=== PATIENT | female | born 1955 | race Caucasian/White ===

== ENCOUNTER → 2016-07-31 | Outpatient (CLI) | payer MEDICARE, MEDICAID ==
[~2016-07-31] MED LIST: VIBRAMYCIN100 MG PO
[2016-07-31 16:16] LABS: BASO # 0.1 10*3/uL (0.0-0.1); BASO % 1.5 % (0.0-1.0); EOS # 0.1 10*3/uL (0.0-0.4); EOS % 2.4 % (1.0-4.0); HEMOGLOBIN 12.6 g/dl (12.0-16.0); LYMPH # 1.8 10*3/uL (1.3-4.4); LYMPH % 33.3 % (27.0-41.0); MEAN CELL VOLUME 89.4 fl (81.0-99.0); MEAN CORPUSCULAR HGB 29.6 pg (27.0-31.0); MEAN CORPUSCULAR HGB CONC 33.2 g/dl (33.0-37.0); MEAN PLATELET VOLUME 10.6 fl (9.6-12.3); MONO # 0.6 10*3/uL (0.1-1.0); MONO % 11.2 % (3.0-9.0); NEUT # 2.8 10*3/uL (2.3-7.9); NEUT % 50.9 % (47.0-73.0); PLATELET COUNT AUTOMATED 236 10*3/uL (130-400); RED BLOOD COUNT 4.25 10*6/uL (4.10-5.10); RED CELL DISTRI WIDTH 12.9 % (0-14.5); WHITE BLOOD COUNT 5.5 10*3/uL (4.8-10.8)
[2016-07-31 16:42] LABS: ALBUMIN 3.8 gm/dl (3.1-4.5); ALKALINE PHOSPHATASE 70 U/L (45-117); BILIRUBIN, TOTAL 0.3 mg/dl (0.2-1.0); BUN 15 mg/dl (7-24); CARBON DIOXIDE 32 mmol/L (21-32); CHLORIDE 102 mmol/L (98-107); EST GLOM FILT AFRICAN AMERICAN > 60 ml/min; GLUCOSE 84 mg/dL (65-99); POTASSIUM 4.2 mmol/L (3.5-5.1); SGOT/AST 15 IU/L (3-35); SGPT/ALT 15 U/L (12-78); SODIUM 139 mmol/L (136-145); TOTAL PROTEIN 7.2 gm/dL (6.4-8.2)
== END | disposition home or self-care (01) ==
LOC: LAB 14:48
PROVIDERS: Physician Assistant Medical
DX: G35 Multiple sclerosis (principal); E56.9 Vitamin deficiency, unspecified

== ENCOUNTER → 2016-08-06 | Outpatient (CLI) | payer MEDICARE, MEDICAID | END | disposition home or self-care (01) | LOC: MRI 01:57 | DX: G35 Multiple sclerosis (principal); M12.88 Other specific arthropathies, not elsewhere classified, other specified site; M47.892 Other spondylosis, cervical region; M48.02 Spinal stenosis, cervical region ==

== ENCOUNTER → 2016-10-19 | Outpatient (CLI) | payer MEDICARE, MEDICAID ==
[2016-10-19 10:41] LABS: HEMOGLOBIN A1c 5.4 % (4.8-5.6)
[2016-10-19 10:54] LABS: CHOLESTEROL 296 mg/dL (<200); GLUCOSE 95 mg/dL (65-99); HDL CHOLESTEROL 67 mg/dl (40-60); LDL CHOLESTEROL 207 mg/dL (9-159); TRIGLYCERIDES 109 mg/dl (<150); VLDL CHOLESTEROL 22 mg/dL (6-40)
== END | disposition home or self-care (01) ==
LOC: LAB 01:50
PROVIDERS: Internal Medicine
DX: E78.00 Pure hypercholesterolemia, unspecified (principal); E55.9 Vitamin D deficiency, unspecified; E11.9 Type 2 diabetes mellitus without complications; Z79.4 Long term (current) use of insulin

== ENCOUNTER → 2017-05-08 | Outpatient (CLI) | payer MEDICARE, MEDICAID ==
[~2017-05-08] MED LIST changes: +EC NAPROSYN,NA500 MG PO; +EFFEXOR XR150 MG PO; +LIPITOR20 MG PO; +TRAZODONE150 MG PO
== END | disposition home or self-care (01) ==
LOC: MAMMO 01:04
DX: Z12.31 Encounter for screening mammogram for malignant neoplasm of breast (principal)

== ENCOUNTER → 2017-05-17 | Day surgery (SDC) | payer MEDICARE, MEDICAID ==
[~2017-05-17] VITALS: Ht 157.4 cm; Wt 54.4 kg
[~2017-05-17] MED LIST changes: +AVONEX PEN30 MCG/0.2 IJ
--- NOTE | ~2017-05-17 | PROC NOTE ---
[place], [place] PROCEDURE NOTE NAME: EMELY SLADE [facility] #: [id number] UNIT #: [id number] ROOM: DOCTOR: KRISTOPHER PERALTA MD BIRTHDATE: [birth year] DOS: 05/17/2017 PREOPERATIVE DIAGNOSIS: Screening colonoscopy. POSTOPERATIVE DIAGNOSIS: Normal colon. PROCEDURE: Colonoscopy. ENDOSCOPIST: Kristopher Peralta MD INSIDE SALES ENGINEER: JO. ANESTHESIA: MAC. INDICATIONS: This is a 61-year-old lady who is here for a screening examination. The procedure and its complications were explained to the patient in detail preoperatively. Complications that were discussed included but were not limited to, bleeding, colon perforation, and missed lesions. She agreed to proceed. DESCRIPTION OF PROCEDURE: After identifying the patient, the patient was brought to the endoscopy suite and placed in the left lateral position. After IV sedation was administered, a timeout procedure was called and a digital rectal exam was performed, which was within normal limits. An adult colonoscope was now introduced into the anal canal and advanced sequentially into the rectum, sigmoid colon, descending colon, transverse colon, ascending colon up to the cecum. Upon reaching the cecum, the scope was withdrawn. The prep was found to be optimal. Total withdrawal time was approximately 6 minutes and 45 seconds. There were no obvious abnormalities identified in the entirety of the colon. There were mild internal hemorrhoids, which were uncomplicated. The scope was then withdrawn and the patient was taken to the recovery room in a stable fashion. There were no complications. Dr. Kristopher Peralta, the attending endoscopist, was present throughout the operating case. Based on these findings, the patient is recommended to have another colonoscopy in 10 years or sooner if she develops any new symptoms. These findings were discussed with the patient's family in the recovery room. Kristopher Peralta MD CM:PROCNOTE:PROCEDURE NOTE [id number] KRISTOPHER PERALTA MD
[2017-05-17 07:15] VITALS: BP 102/58
[2017-05-17 08:13] VITALS: BP 101/52
[2017-05-17 08:28] VITALS: BP 106/55
[2017-05-17 08:43] VITALS: BP 125/58
== END | disposition home or self-care (01) ==
LOC: SDC 05-14 11:00
DX: Z12.11 Encounter for screening for malignant neoplasm of colon (principal); F32.9 Major depressive disorder, single episode, unspecified; E78.00 Pure hypercholesterolemia, unspecified; J43.9 Emphysema, unspecified; Z90.710 Acquired absence of both cervix and uterus; Z82.49 Family history of ischemic heart disease and other diseases of the circulatory system; Z87.891 Personal history of nicotine dependence; K64.8 Other hemorrhoids; Z88.0 Allergy status to penicillin
CPT/HCPCS: 00811; G0121

== ENCOUNTER 2018-12-25 09:32 | Inpatient (IN) | payer MEDICARE, MEDICAID ==
[~2018-12-25] VITALS: Ht 162.5 cm; Wt 55.1 kg
[2018-12-25 09:32] VITALS: BP 120/49
[2018-12-25 09:58] LABS: BASO # 0.1 10*3/uL (0.0-0.1); BASO % 0.9 % (0.0-1.0); EOS # 0.1 10*3/uL (0.0-0.4); EOS % 1.4 % (1.0-4.0); HEMATOCRIT 42.2 % (37.0-47.0); HEMOGLOBIN 13.6 g/dl (12.0-16.0); LYMPH # 1.5 10*3/uL (1.3-4.4); LYMPH % 26.7 % (27.0-41.0); MEAN CELL VOLUME 92.7 fl (81.0-99.0); MEAN CORPUSCULAR HGB 29.9 pg (27.0-31.0); MEAN CORPUSCULAR HGB CONC 32.2 g/dl (33.0-37.0); MEAN PLATELET VOLUME 10.4 fl (9.6-12.3); MONO # 0.5 10*3/uL (0.1-1.0); MONO % 8.8 % (3.0-9.0); NEUT # 3.4 10*3/uL (2.3-7.9); NEUT % 61.1 % (47.0-73.0); PLATELET COUNT AUTOMATED 235 10*3/uL (130-400); RED BLOOD COUNT 4.55 10*6/uL (4.10-5.10); RED CELL DISTRI WIDTH 13.1 % (0-14.5); WHITE BLOOD COUNT 5.6 10*3/uL (4.8-10.8)
[2018-12-25 10:10] LABS: ACT PARTIAL THROMBO TIME 25.7 SECONDS (20.0-32.1); INTERNATIONAL NORM RATIO 0.9 (2.0-3.5)
[2018-12-25 10:13] LABS: ALKALINE PHOSPHATASE 72 U/L (45-117); BUN 9 mg/dl (7-24); CHLORIDE 106 mmol/L (98-107); CREATININE 0.75 mg/dL (0.55-1.02); POTASSIUM 4.2 mmol/L (3.5-5.1); SGOT/AST 15 IU/L (3-35); SGPT/ALT 20 U/L (12-78); SODIUM 141 mmol/L (136-145); TOTAL PROTEIN 7.4 gm/dL (6.4-8.2)
[2018-12-25 10:20] LABS: TROPONIN I < 0.015 ng/ml (<0.045)
[2018-12-25 10:27] VITALS: BP 109/67
--- NOTE | 2018-12-25 10:39 | NUR ---
BACK FROM CT AT THIS TIME.
[2018-12-25 10:55] VITALS: BP 101/40
--- NOTE | 2018-12-25 10:55 | NUR ---
A 63, admitted to , under the services of JUAN LUIS Smith DO with a diagnosis of SYNCOPE. Chief complaint is SYNCOPE, HEART PALPATIONS. Patient arrived via stretcher from ER. Monitor applied. Initial assessment completed. Vital signs taken and recorded. JUAN LUIS SMITH DO notified of admission to the unit. Orders received. See assessment for past medical history, medications and allergies. Patient and/or family oriented to unit. [address] visitation policy reviewed. Clothing/patient valuable form completed. LAURENT MALDONADO
[2018-12-25] MEDS ORDERED: FOSAMAX70 M1 PO (11:45)
[2018-12-25] MEDS ORDERED: Synthroid,Levo88 MCG PO (11:46)
--- NOTE | 2018-12-25 11:46 | NUR ---
MED REC UPDATED PER PATIENT
[2018-12-25 12:00] VITALS: BP 111/44
--- NOTE | 2018-12-25 12:11 | NUR ---
DR CLEVELAND'S OFFICE CALLED RE: CONSULT.
--- NOTE | 2018-12-25 13:59 | NUR ---
CONSULT CALLED TO DR RAMIREZ. ORDERS RECIEVED.
--- NOTE | 2018-12-25 14:15 | NUR ---
PT AGREEABLE TO EGD FOR TOMORROW.
[2018-12-25 16:00] VITALS: BP 100/60
[2018-12-25 20:00] VITALS: BP 106/47
[2018-12-26] VITALS (11 sets, daily range): BP systolic 78–119; BP diastolic 34–72
[2018-12-26 07:16] LABS: BASO # 0.1 10*3/uL (0.0-0.1); BASO % 1.2 % (0.0-1.0); EOS # 0.2 10*3/uL (0.0-0.4); EOS % 3.5 % (1.0-4.0); HEMATOCRIT 39.6 % (37.0-47.0); HEMOGLOBIN 12.6 g/dl (12.0-16.0); LYMPH # 1.6 10*3/uL (1.3-4.4); LYMPH % 32.2 % (27.0-41.0); MEAN CELL VOLUME 92.3 fl (81.0-99.0); MEAN CORPUSCULAR HGB 29.4 pg (27.0-31.0); MEAN CORPUSCULAR HGB CONC 31.8 g/dl (33.0-37.0); MEAN PLATELET VOLUME 11.3 fl (9.6-12.3); MONO # 0.6 10*3/uL (0.1-1.0); MONO % 11.6 % (3.0-9.0); NEUT # 2.4 10*3/uL (2.3-7.9); NEUT % 50.5 % (47.0-73.0); PLATELET COUNT AUTOMATED 218 10*3/uL (130-400); RED BLOOD COUNT 4.29 10*6/uL (4.10-5.10); RED CELL DISTRI WIDTH 12.9 % (0-14.5); WHITE BLOOD COUNT 4.8 10*3/uL (4.8-10.8)
[2018-12-26 07:19] LABS: ALBUMIN 3.5 gm/dl (3.1-4.5); BUN 15 mg/dl (7-24); CHLORIDE 110 mmol/L (98-107); CHOLESTEROL 153 mg/dL (<200); CREATININE 0.81 mg/dL (0.55-1.02); PHOSPHOROUS 3.4 mg/dL (2.5-4.9); SGOT/AST 19 IU/L (3-35); SGPT/ALT 20 U/L (12-78); SODIUM 141 mmol/L (136-145); TOTAL PROTEIN 6.7 gm/dL (6.4-8.2); TRIGLYCERIDES 101 mg/dl (<150); VLDL CHOLESTEROL 20 mg/dL (6-40)
[2018-12-26 07:23] LABS: ALKALINE PHOSPHATASE 63 U/L (45-117); HDL CHOLESTEROL 64 mg/dl (40-60); LDL CHOLESTEROL 69 mg/dL (9-159); THYROID STIM HORMONE (HS) 0.035 uIU/ml (0.358-4.75)
--- NOTE | 2018-12-26 08:36 | NUR ---
Occupational Therapy offered this date, but patient reports she is independent in all ADLs and functional mobility without a device. Discharge OT referral. Patient in agreement. Thank you. La Candelaria OTR/drea
--- NOTE | 2018-12-26 08:36 | NUR ---
PHYSICAL THERAPY Physical therapy screen completed. Pt is independent with ambulation and ADLs without usage of an AD. Pt reporting no concerns and no needs. Pt has no PT needs at this time. Thank you Shruti Dixon, PT, DPT
--- NOTE | 2018-12-26 09:00 | NUR ---
Supervisor [employer] in to talk to patient. Patient states lives at home with . There are few steps in the home. Physician: ashley cordero [facility]acy: [facility] Home health services: none Patient's level of ADLs: INDEPENDENT Patient has working utilities: all working DME: none Follow-up physician's appointment after d/c: will be made by hospitalist nurse director upon discharge Does patient want to access PORTAL?: no Discharge plan discussed with patient, she lives at home, is independent in adls and ambulation, she states she will return home when medically stable and denies any home needs. MARLENY ELMORE
--- NOTE | 2018-12-26 20:57 | NUR ---
NOTIFIED DR. GARCIA OF BP 102/42. TO KEEP AN EYE ON HER. NO NEW ORDERS RECEIVED.
[2018-12-27] VITALS: BP 98/50
--- NOTE | 2018-12-27 01:13 | NUR ---
Patient sleeping. Respirations relaxed and easy. Siderails up . [place] on. No signs of distress noted. Call light within reach. Will continue to monior. ALIREZA MORENO
--- NOTE | 2018-12-27 01:46 | NUR ---
NOTIFIED OF SHORT BURST OF SVTS. PER DR RUIZ ORDERED [facility] FOR TOMORROW MORNING.
--- NOTE | 2018-12-27 05:17 | NUR ---
24 HR CHART CHECK COMPLETE.
[2018-12-27 08:00] VITALS: BP 98/48
[2018-12-27 10:38] VITALS: BP 100/58
[2018-12-27 12:00] VITALS: BP 101/45
[2018-12-27 16:00] VITALS: BP 99/50
[2018-12-27 20:00] VITALS: BP 120/61
[2018-12-28] VITALS: BP 107/63
--- NOTE | 2018-12-28 02:24 | NUR ---
24 HR CHART CHECK COMPLETE.
--- NOTE | 2018-12-28 02:47 | NUR ---
Patient sleeping. Respirations relaxed and easy. Siderails up . [place] on. No signs of distress noted. Call light within reach. ALIREZA MORENO
[2018-12-28] MEDS ORDERED: PROTONIX40 MG PO (08:14)
--- NOTE | 2018-12-28 09:00 | NUR ---
Discharge instructions reviewed with patient/family. Patient receptive and verbalizes understanding. Follow-up care arranged. Written instructions given to patient/family. VERA KABA
--- NOTE | 2018-12-28 09:17 | NUR ---
IN TO ROOM. PATIENT SITTING ON SIDE OF BED. AWAKE, ALERT AND ORIENTED. NO STATED COMPLAINTS. PT STATES SHE IS READY FOR DISCHARGE. NO S/S OF DISTRESS OR SOB NOTED. RESPIRATIONS ARE EASY AND REGULAR. BED IN LOWEST LOCKED POSITION. CALL LIGHT WITHIN REACH.
== END 2018-12-28 09:43 | disposition home or self-care (01) | DRG 312 ==
LOC: ED 09:32 → 4E 10:30 → EDHOLD 10:30 → 4E 10:31
PROVIDERS: Emergency Medicine; Student in an Organized Health Care Education/Training Program; ADMIT Internal Medicine
PROC: 0DB78ZX Excision of Stomach, Pylorus, Via Natural or Artificial Opening Endoscopic, Diagnostic (ICD-10-PCS; principal; 2018-12-26)
DX: I95.1 Orthostatic hypotension (principal); I47.1 Supraventricular tachycardia; R00.2 Palpitations; D72.810 Lymphocytopenia; K22.8 Other specified diseases of esophagus; G35 Multiple sclerosis; E03.9 Hypothyroidism, unspecified; F51.01 Primary insomnia; E78.5 Hyperlipidemia, unspecified; E11.9 Type 2 diabetes mellitus without complications; K44.9 Diaphragmatic hernia without obstruction or gangrene; K29.70 Gastritis, unspecified, without bleeding; K25.9 Gastric ulcer, unspecified as acute or chronic, without hemorrhage or perforation; M81.0 Age-related osteoporosis without current pathological fracture; R00.1 Bradycardia, unspecified; E87.8 Other disorders of electrolyte and fluid balance, not elsewhere classified; Z90.49 Acquired absence of other specified parts of digestive tract; Z90.710 Acquired absence of both cervix and uterus; Z87.891 Personal history of nicotine dependence; Z82.49 Family history of ischemic heart disease and other diseases of the circulatory system; Z80.1 Family history of malignant neoplasm of trachea, bronchus and lung; Z88.0 Allergy status to penicillin; Z88.5 Allergy status to narcotic agent; Z88.1 Allergy status to other antibiotic agents; Z79.899 Other long term (current) drug therapy; Z82.41 Family history of sudden cardiac death

== ENCOUNTER → 2019-01-19 | Outpatient (CLI) | payer MEDICARE, MEDICAID ==
[~2019-01-19] MED LIST changes: +FOSAMAX70 M1 PO; +PROTONIX40 MG PO; +Synthroid,Levo88 MCG PO
--- NOTE | ~2019-01-19 | ST ---
[place], [place] EXERCISE STRESS TEST REPORT NAME: EMELY SLADE [facility] #: [id number] UNIT #: [id number] ROOM: DOCTOR: JUAN PABLO VÁZQUEZ MD BIRTHDATE: [birth year] DOS: 01/19/2019 EXERCISE STRESS TEST REASON FOR TESTING: Syncope. PROCEDURE: After informed consent was obtained, the patient walked for 6 minutes and 0 seconds on a full Manoj protocol stress test and stopped for fatigue. She achieved a maximum heart rate of 147 which is 93% of maximum predicted heart rate at a work load of 7 mets. There were no EKG changes on the exercise. The patient experienced no chest pain. Her [place] treadmill score was 6 consistent with a low risk cardiovascular events. Her exercise capacity is average. There was an appropriate blood pressure and heart rate response to exercise and recovery. No prior test for comparison. Juan Pablo Vázquez MD CM:STRESS:EXERCISE STRESS TEST REPORT [id number] JUAN PABLO VÁZQUEZ MD
--- NOTE | 2019-01-19 09:45 | NUR ---
INFORMED SIGNED CONSENT OBTAINED FOR STANDARD ONLY GXT. RESTING EKG NSR HR 69 BP 104/66 IN SUPINE POSITION, STANDING HR 77 BP 110/60. PT COMPLETED 6 MINS OF A HAYDEE PROTOCOL WITH PT COMPLETING STAGE II AT 2.5 MPH AND A 12% GRADE. NO ARRHYTMIAS NOTED NO ST CHANGES SEEN. PT REACHED A PEAK HR OF 146 WHICH REPRESENTS 93% OF PREDICTED MAXIMUM AND A PEAK BP OF 134/70. TEST TERMINATED DUE TO FATIGUE. LAST RECOVERY HR OF 87 BP 120/44. PT IN STABLE CONDITION, HOME TO SELF. IV HEP LOCK TAKEN OUT.
== END | disposition home or self-care (01) ==
LOC: CARD 01-12 10:30
DX: I49.8 Other specified cardiac arrhythmias (principal); R94.31 Abnormal electrocardiogram [ECG] [EKG]

== ENCOUNTER → 2019-05-14 | Outpatient (CLI) | payer MEDICARE, MEDICAID ==
[2019-05-14 09:23] LABS: BASO # 0.1 10*3/uL (0.0-0.1); BASO % 1.1 % (0.0-1.0); EOS # 0.2 10*3/uL (0.0-0.4); EOS % 3.9 % (1.0-4.0); HEMATOCRIT 43.9 % (37.0-47.0); LYMPH % 21.7 % (27.0-41.0); MEAN CELL VOLUME 93.2 fl (81.0-99.0); MEAN CORPUSCULAR HGB 29.7 pg (27.0-31.0); MEAN CORPUSCULAR HGB CONC 31.9 g/dl (33.0-37.0); MEAN PLATELET VOLUME 10.8 fl (9.6-12.3); MONO # 0.8 10*3/uL (0.1-1.0); MONO % 17.1 % (3.0-9.0); NEUT # 2.4 10*3/uL (2.3-7.9); NEUT % 54.8 % (47.0-73.0); PLATELET COUNT AUTOMATED 209 10*3/uL (130-400); RED BLOOD COUNT 4.71 10*6/uL (4.10-5.10); RED CELL DISTRI WIDTH 13.2 % (0-14.5); WHITE BLOOD COUNT 4.4 10*3/uL (4.8-10.8)
[2019-05-14 09:58] LABS: ALBUMIN 4.1 gm/dl (3.1-4.5); ALKALINE PHOSPHATASE 77 U/L (45-117); BUN 12 mg/dl (7-24); CHLORIDE 108 mmol/L (98-107); POTASSIUM 4.8 mmol/L (3.5-5.1); SGOT/AST 19 IU/L (3-35); SGPT/ALT 22 U/L (12-78); SODIUM 141 mmol/L (136-145); TOTAL PROTEIN 7.6 gm/dL (6.4-8.2)
[2019-05-14 10:02] LABS: CREATININE 0.95 mg/dL (0.55-1.02)
== END | disposition home or self-care (01) ==
LOC: LAB 00:09
PROVIDERS: Physician Assistant Medical
DX: G35 Multiple sclerosis (principal); E55.9 Vitamin D deficiency, unspecified

== ENCOUNTER → 2019-12-02 | Outpatient (CLI) | payer MEDICARE, MEDICAID | END | disposition home or self-care (01) | LOC: US 04:06 | PROVIDERS: ATTEND Nurse Practitioner Primary Care | DX: R22.40 Localized swelling, mass and lump, unspecified lower limb (principal); M79.89 Other specified soft tissue disorders ==

== ENCOUNTER → 2019-12-10 | Outpatient (CLI) | payer MEDICARE, MEDICAID | END | disposition home or self-care (01) | LOC: MAMMO 01:31 | PROVIDERS: ATTEND Nurse Practitioner Primary Care | DX: Z12.31 Encounter for screening mammogram for malignant neoplasm of breast (principal) ==

== ENCOUNTER → 2021-10-09 | Outpatient (CLI) | payer OTHER, MEDICAID ==
[2021-10-09 11:09] LABS: BASO % 0.8 % (0.0-1.0); EOS # 0.1 10*3/uL (0.0-0.4); EOS % 2.3 % (1.0-4.0); HEMATOCRIT 38.4 % (37.0-47.0); LYMPH # 1.1 10*3/uL (1.3-4.4); MEAN CELL VOLUME 91.6 fl (81.0-99.0); MEAN CORPUSCULAR HGB 30.5 pg (27.0-31.0); MEAN CORPUSCULAR HGB CONC 33.3 g/dl (33.0-37.0); MONO # 0.5 10*3/uL (0.1-1.0); NEUT # 2.9 10*3/uL (2.3-7.9); NEUT % 61.4 % (47.0-73.0); PLATELET COUNT AUTOMATED 236 10*3/uL (130-400); RED BLOOD COUNT 4.19 10*6/uL (4.10-5.10); RED CELL DISTRI WIDTH 13.5 % (0-14.5); WHITE BLOOD COUNT 4.7 10*3/uL (4.8-10.8)
[2021-10-09 11:26] LABS: ALKALINE PHOSPHATASE 61 U/L (45-117); BUN 12 mg/dl (7-24); CHLORIDE 109 mmol/L (98-107); CREATININE 0.91 mg/dL (0.55-1.02); FREE T4 0.81 ng/dl (0.76-1.46); POTASSIUM 4.2 mmol/L (3.5-5.1); SGOT/AST 17 IU/L (3-35); SGPT/ALT 16 U/L (12-78); SODIUM 142 mmol/L (136-145); TOTAL PROTEIN 7.6 gm/dL (6.4-8.2)
[2021-10-09 12:52] LABS: VITAMIN D, 25-HYDROXY 62.5 ng/mL (30-100)
== END | disposition home or self-care (01) ==
LOC: LAB 10:43
PROVIDERS: ATTEND Physician Assistant Medical
DX: E03.9 Hypothyroidism, unspecified (principal); E53.8 Deficiency of other specified B group vitamins; G35 Multiple sclerosis; E55.9 Vitamin D deficiency, unspecified; Z79.899 Other long term (current) drug therapy

== ENCOUNTER → 2021-10-11 | Outpatient (CLI) | payer OTHER | END | disposition home or self-care (01) | LOC: MRI 00:12 | PROVIDERS: ATTEND Physician Assistant Medical | DX: G35 Multiple sclerosis (principal); M47.812 Spondylosis without myelopathy or radiculopathy, cervical region; M48.02 Spinal stenosis, cervical region ==

== ENCOUNTER → 2022-01-23 | Outpatient (CLI) | payer OTHER, MEDICAID ==
[2022-01-23 12:37] LABS: VITAMIN D, 25-HYDROXY 36.9 ng/mL (30-100)
[2022-01-23 13:13] LABS: FREE T4 2.18 ng/dl (0.76-1.46)
[2022-01-23 13:42] LABS: THYROID STIM HORMONE (HS) 0.012 uIU/ml (0.358-4.75)
== END ==
LOC: LAB 11:11
PROVIDERS: ATTEND Family Medicine
DX: S00.86XA Insect bite (nonvenomous) of other part of head, initial encounter (principal); M15.0 Primary generalized (osteo)arthritis; E55.9 Vitamin D deficiency, unspecified; E03.9 Hypothyroidism, unspecified; R53.83 Other fatigue; M25.50 Pain in unspecified joint; X58.XXXA Exposure to other specified factors, initial encounter; Y93.89 Activity, other specified; Y92.89 Other specified places as the place of occurrence of the external cause; Y99.8 Other external cause status

== ENCOUNTER → 2022-04-17 | Outpatient (CLI) | payer OTHER, MEDICAID ==
[2022-04-17 11:09] LABS: FREE T4 0.88 ng/dl (0.89-1.76); THYROID STIM HORMONE (HS) 20.826 uIU/ml (0.550-4.780)
== END | disposition home or self-care (01) ==
LOC: LAB 10:16
PROVIDERS: Family Medicine; ATTEND Physician Assistant Medical
DX: E06.3 Autoimmune thyroiditis (principal); E06.9 Thyroiditis, unspecified

== ENCOUNTER → 2022-05-07 | Outpatient (CLI) | payer OTHER, MEDICAID | END | disposition home or self-care (01) | LOC: RAD 01:42 | PROVIDERS: ATTEND Physician Assistant Medical | DX: M81.0 Age-related osteoporosis without current pathological fracture (principal) ==

== ENCOUNTER → 2022-07-12 | Outpatient (CLI) | payer OTHER, MEDICAID ==
[2022-07-12 11:25] LABS: VITAMIN D, 25-HYDROXY 54.5 ng/mL (30-100)
[2022-07-12 13:09] LABS: CHLORIDE 107 mmol/L (98-107); POTASSIUM 4.5 mmol/L (3.4-5.1)
[2022-07-12 13:27] LABS: ALKALINE PHOSPHATASE 53 U/L (46-116); BUN 10 mg/dl (9-23); CHOLESTEROL 139 mg/dL (<200); CPK 37 U/L (34-171); FREE T4 2.34 ng/dl (0.89-1.76); LDL CHOLESTEROL 69 mg/dL (9-159); SGPT/ALT 18 U/L (10-49); TOTAL PROTEIN 6.9 gm/dL (6.0-8.0); TRIGLYCERIDES 76 mg/dl (<150)
== END | disposition home or self-care (01) ==
LOC: LAB 09:48
PROVIDERS: ATTEND Family Medicine
DX: E78.00 Pure hypercholesterolemia, unspecified (principal); R53.83 Other fatigue; E55.9 Vitamin D deficiency, unspecified; E03.9 Hypothyroidism, unspecified

== ENCOUNTER → 2022-08-09 | Outpatient (CLI) | payer OTHER, MEDICAID ==
[2022-08-09 10:22] LABS: FREE T4 1.44 ng/dl (0.89-1.76); THYROID STIM HORMONE (HS) 0.092 uIU/ml (0.550-4.780)
[2022-08-10 15:07] LABS: THYROGLOBULIN ANTIBODY 14.6 IU/mL (0.0-0.9)
== END | disposition home or self-care (01) ==
LOC: LAB 08-08 18:48
PROVIDERS: ATTEND Family Medicine
DX: E05.90 Thyrotoxicosis, unspecified without thyrotoxic crisis or storm (principal)

== ENCOUNTER → 2022-12-20 | Outpatient (CLI) | payer OTHER, MEDICAID ==
[2022-12-20 11:37] LABS: ALKALINE PHOSPHATASE 67 U/L (46-116); BUN 8 mg/dl (9-23); CHLORIDE 108 mmol/L (98-107); CHOLESTEROL 162 mg/dL (<200); CPK 37 U/L (34-171); FREE T4 1.34 ng/dl (0.89-1.76); LDL CHOLESTEROL 77 mg/dL (9-159); POTASSIUM 4.6 mmol/L (3.4-5.1); SGPT/ALT 13 U/L (10-49); TOTAL PROTEIN 7.4 gm/dL (6.0-8.0); TRIGLYCERIDES 88 mg/dl (<150)
== END | disposition home or self-care (01) ==
LOC: LAB 00:36
PROVIDERS: ATTEND Family Medicine
DX: N60.12 Diffuse cystic mastopathy of left breast (principal); E03.9 Hypothyroidism, unspecified; E78.00 Pure hypercholesterolemia, unspecified; E55.9 Vitamin D deficiency, unspecified

== ENCOUNTER → 2023-07-10 | Outpatient (CLI) | payer OTHER, MEDICAID ==
[~2023-07-10] MED LIST changes: +LOPRESSOR25 MG PO
== END | disposition home or self-care (01) ==
LOC: CT 02:29
PROVIDERS: ATTEND Internal Medicine Critical Care Medicine
DX: J43.9 Emphysema, unspecified (principal); R91.8 Other nonspecific abnormal finding of lung field; R91.1 Solitary pulmonary nodule; I25.10 Atherosclerotic heart disease of native coronary artery without angina pectoris; K80.20 Calculus of gallbladder without cholecystitis without obstruction; Z68.1 Body mass index [BMI] 19.9 or less, adult

== ENCOUNTER 2023-11-05 11:51 | Emergency (ER) | payer OTHER, MEDICAID ==
[~2023-11-05] VITALS: Ht 160 cm; Wt 54.4 kg
[~2023-11-05 11:51] MED LIST changes: -EFFEXOR XR150 MG PO; +EFFEXOR XR75 M1 PO
[2023-11-05 12:04] VITALS: BP 118/68
[2023-11-05] MEDS ORDERED: HYDROCODONE-AC1 EAC1 PO (13:12)
== END 2023-11-05 13:22 | disposition home or self-care (01) ==
LOC: ED 11:51
DX: S22.42XA Multiple fractures of ribs, left side, initial encounter for closed fracture (principal); E78.00 Pure hypercholesterolemia, unspecified; D64.9 Anemia, unspecified; E78.5 Hyperlipidemia, unspecified; J44.9 Chronic obstructive pulmonary disease, unspecified; F32.A Depression, unspecified; E03.9 Hypothyroidism, unspecified; Z88.0 Allergy status to penicillin; Z88.1 Allergy status to other antibiotic agents; Z88.5 Allergy status to narcotic agent; Z88.8 Allergy status to other drugs, medicaments and biological substances; Z90.49 Acquired absence of other specified parts of digestive tract; Z98.890 Other specified postprocedural states; Z90.710 Acquired absence of both cervix and uterus; Z87.891 Personal history of nicotine dependence; W19.XXXA Unspecified fall, initial encounter; Y93.89 Activity, other specified; Y92.009 Unspecified place in unspecified non-institutional (private) residence as the place of occurrence of the external cause; Y99.8 Other external cause status

== ENCOUNTER 2023-12-30 10:36 | Emergency (ER) | payer OTHER, MEDICAID ==
[~2023-12-30] VITALS: Ht 160 cm; Wt 50.8 kg
[~2023-12-30 10:36] MED LIST changes: +HYDROCODONE-AC1 EAC1 PO
[2023-12-30 10:56] VITALS: BP 122/73
[2023-12-30] MEDS ORDERED: Acetaminophen/Oxycodone 5 MG/325 MG TABLET PO ONE (12:20)
[2023-12-30] MEDS ORDERED: PREDNISONE50 MG PO (14:34)
[2023-12-30] MEDS ORDERED: CYCLOBENZAPRINE5 M3 PO (14:34)
[2023-12-30] MEDS ORDERED: PERCOCET 5-3251 EACH PO (14:34)
== END 2023-12-30 14:49 | disposition home or self-care (01) ==
LOC: ED 10:36
DX: M54.16 Radiculopathy, lumbar region (principal); R07.81 Pleurodynia; M25.552 Pain in left hip; J44.9 Chronic obstructive pulmonary disease, unspecified; F32.A Depression, unspecified; E78.00 Pure hypercholesterolemia, unspecified; Z88.0 Allergy status to penicillin; Z88.1 Allergy status to other antibiotic agents; Z88.5 Allergy status to narcotic agent; Z88.8 Allergy status to other drugs, medicaments and biological substances; Z90.49 Acquired absence of other specified parts of digestive tract; Z90.710 Acquired absence of both cervix and uterus; Z98.890 Other specified postprocedural states; Z87.891 Personal history of nicotine dependence

== ENCOUNTER 2024-02-27 06:30 | Emergency (ER) | payer OTHER, MEDICAID ==
[~2024-02-27] VITALS: Ht 167.6 cm; Wt 72.6 kg
[~2024-02-27 06:30] MED LIST changes: +CYCLOBENZAPRINE5 M3 PO; +PERCOCET 5-3251 EACH PO; +PREDNISONE50 MG PO
[2024-02-27] MEDS ORDERED: SODIUM CHLORIDE 0.9% 1,000 ML IV ONE (06:40)
[2024-02-27] MEDS ORDERED: ADENOSINE 6 MG/2 ML VIAL IV ONE ×3 (06:40→06:48)
[2024-02-27 07:13] LABS: HEMATOCRIT 38.2 % (37.0-47.0); MEAN CELL VOLUME 93.2 fl (81.0-99.0); MEAN CORPUSCULAR HGB CONC 31.2 g/dl (33.0-37.0); MEAN PLATELET VOLUME 9.9 fl (9.6-12.3); PLATELET COUNT AUTOMATED 202 10*3/uL (130-400); RED CELL DISTRI WIDTH 15.1 % (0-14.5); WHITE BLOOD COUNT 5.4 10*3/uL (4.8-10.8)
[2024-02-27 07:16] LABS: MANUAL DIFF REFLEX YES
[2024-02-27 07:30] LABS: BUN 10 mg/dl (9-23); CHLORIDE 110 mmol/L (98-107); POTASSIUM 3.6 mmol/L (3.4-5.1)
[2024-02-27 08:10] VITALS: BP 92/55
[2024-02-27 08:44] LABS: ATYPICAL LYMPHS 1 % (0-0); TOTAL CELLS COUNTED 100 #CELLS
[2024-02-27 08:45] LABS: OVALOCYTES FEW; PLATELET SUFFICIENCY NORMAL (NORMAL)
== END 2024-02-27 08:58 | disposition home or self-care (01) ==
LOC: ED 06:30
PROVIDERS: Internal Medicine
DX: I47.10 Supraventricular tachycardia, unspecified (principal); J43.9 Emphysema, unspecified; F32.A Depression, unspecified; E78.00 Pure hypercholesterolemia, unspecified; Z88.0 Allergy status to penicillin; Z88.1 Allergy status to other antibiotic agents; Z88.5 Allergy status to narcotic agent; Z88.8 Allergy status to other drugs, medicaments and biological substances; Z90.49 Acquired absence of other specified parts of digestive tract; Z90.710 Acquired absence of both cervix and uterus; Z98.890 Other specified postprocedural states; Z87.891 Personal history of nicotine dependence

== ENCOUNTER → 2024-08-14 | Outpatient (CLI) | payer OTHER, MEDICAID | END | disposition home or self-care (01) | LOC: RAD 09:12 | PROVIDERS: ATTEND Family Medicine | DX: M81.8 Other osteoporosis without current pathological fracture (principal); M81.0 Age-related osteoporosis without current pathological fracture ==

== ENCOUNTER 2024-09-17 14:56 | Emergency (ER) | payer OTHER, MEDICAID ==
[~2024-09-17] VITALS: Ht 1 cm; Wt 54.4 kg
[2024-09-17 15:08] VITALS: BP 98/54
[2024-09-17] MEDS ORDERED: PREDNISONE50 MG PO (15:52)
[2024-09-17] MEDS ORDERED: Acetaminophen/Hydrocodone 5 MG/325 MG TABLET PO ONE (15:55)
== END 2024-09-17 16:29 | disposition home or self-care (01) ==
LOC: ED 14:56
DX: M54.41 Lumbago with sciatica, right side (principal); M54.42 Lumbago with sciatica, left side; Z88.0 Allergy status to penicillin; Z88.1 Allergy status to other antibiotic agents; Z88.5 Allergy status to narcotic agent; Z79.899 Other long term (current) drug therapy; Z90.49 Acquired absence of other specified parts of digestive tract; Z90.710 Acquired absence of both cervix and uterus; Z98.890 Other specified postprocedural states; Z87.891 Personal history of nicotine dependence

== ENCOUNTER → 2024-10-07 | Outpatient (CLI) | payer OTHER, MEDICAID | END | disposition home or self-care (01) | LOC: MAMMO 09-09 08:00 | PROVIDERS: ATTEND Family Medicine | DX: R92.343 Mammographic extreme density, bilateral breasts (principal); N64.89 Other specified disorders of breast; N63.20 Unspecified lump in the left breast, unspecified quadrant; N60.19 Diffuse cystic mastopathy of unspecified breast; N60.01 Solitary cyst of right breast ==

== ENCOUNTER 2025-02-06 15:26 | Emergency (ER) | payer OTHER, MEDICAID ==
[2025-02-06 15:45] VITALS: BP 124/53
== END 2025-02-06 17:55 | disposition home or self-care (01) ==
LOC: ED 15:26
DX: S16.1XXA Strain of muscle, fascia and tendon at neck level, initial encounter (principal); J44.89 Other specified chronic obstructive pulmonary disease; F32.A Depression, unspecified; E78.00 Pure hypercholesterolemia, unspecified; Z88.0 Allergy status to penicillin; Z88.5 Allergy status to narcotic agent; Z88.1 Allergy status to other antibiotic agents; Z88.8 Allergy status to other drugs, medicaments and biological substances; Z90.710 Acquired absence of both cervix and uterus; Z90.49 Acquired absence of other specified parts of digestive tract; Z98.890 Other specified postprocedural states; Z87.891 Personal history of nicotine dependence; V89.2XXA Person injured in unspecified motor-vehicle accident, traffic, initial encounter; Y93.89 Activity, other specified; Y92.89 Other specified places as the place of occurrence of the external cause; Y99.8 Other external cause status